=== PATIENT | female | born 1995 | race Caucasian/White ===

== ENCOUNTER 2020-05-03 12:23 | Observation (INO) | payer MEDICAID ==
[2020-05-03] MEDS ORDERED: Acetaminophen 325 MG Tab PO PRN (13:09)
[2020-05-03] MEDS ORDERED: Albuterol 0.083% 2.5 MG/3 ML Neb Soln NEB PRN (13:09)
[2020-05-03] MEDS ORDERED: Ibuprofen 400 MG Tab PO PRN (13:09)
[2020-05-03] MEDS ORDERED: Ondansetron 4 MG Tab.DIS PO PRN (13:09)
[2020-05-03] MEDS ORDERED: Sodium Chloride 0.9% 10 ML Syringe FLUSH PRN (13:09)
--- NOTE | 2020-05-03 13:58 | PCM.HP ---
H&P History of Present Illness - General Date of Service: 05/03/20 Admit Problem/Dx: Admission Diagnosis/Problem Admission Diagnosis/Problem Shortness of breath Source of Information: Patient, Provider (Family practice) - History of Present Illness Initial Comments - Free Text/Narative: 24-year-old lady with no significant past medical history. 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 Recent community transmission of covid-19 infection reported in the area. The patient presented with cough, nausea vomiting diarrhea. Shortness of breath, cough, nasal congestion has been present for about 4 days. Gradually worsening. Associated with no fever. She has had retrosternal chest pain with coughing. She had nausea, vomiting and diarrhea but no abdominal pain. No black or bloody stool or urine. No urinary burning. She is complaining of shortness of breath with activity even small activities like walking across her kitchen. She went to the local clinic and was referred for further aberration treatment in the hospital setting. Her 7 month child has cough without fever without other symptoms. She thought this might relate to allergies. - Related Data Allergies/Adverse Reactions: Allergies Allergy/AdvReac Type Severity Reaction Status Date / Time No Known Allergies Allergy Verified 09/25/19 05:20 Home Medications: Home Meds Pnv No.95/Ferrous Fum/Folic AC [ Vitamin Tablet] 1 each PO DAILY 09/25/19 [History] Past Medical History Respiratory History: Reports: None Gastrointestinal History: Reports: GERD Genitourinary History: Reports: UTI, Recurrent [employer] CONSULTANT History: Reports: Musculoskeletal History: Reports: None Neurological History: Reports: None Psychiatric History: Reports: Addiction, Anxiety, Depression Endocrine/Metabolic History: Reports: None Hematologic History: Reports: None Oncologic (Cancer) History: Reports: None Dermatologic History: Reports: None - Infectious Disease History Infectious Disease History: Reports: None - Past Surgical History Head Surgeries/Procedures: Reports: None Other HEENT Surgeries/Procedures: wisdom teeth removed GI Surgical History: Reports: Cholecystectomy Female Surgical History: Reports: Section Social & Family History - Family History Psychiatric: Reports: Anxiety (Sister) Endocrine/Metabolic: Reports: Diabetes, type II (Mother) - Caffeine Use Caffeine Use: Reports: Soda - Living Situation & Occupation Living situation: Reports: with Significant Other Occupation: Employed H&P Review of Systems - Review of Systems: Review Of Systems: See Below General: Reports: Malaise, Weakness, Fatigue. Denies: Fever, Chills Pulmonary: Reports: Shortness of Breath, Pleuritic Chest Pain, Cough, Sputum. Denies: Hemoptysis Cardiovascular: Reports: Chest Pain (With coughing), Dyspnea on Exertion. Denies: Edema Gastrointestinal: Reports: Diarrhea, Nausea, Vomiting. Denies: Abdominal Pain Psychiatric: Denies: Confusion Exam - Exam Exam: See Below - Vital Signs Vital Signs: Last Vital Signs Temp 97.8 F 05/03/20 13:09 Pulse 86 05/03/20 13:09 Resp 18 05/03/20 13:09 BP 134/84 05/03/20 13:09 Pulse Ox 99 05/03/20 13:09 - Exam General: Alert, Oriented HEENT: Conjunctiva Clear. No: Scleral Icterus Neck: Supple Lungs: Clear to Auscultation, Normal Respiratory Effort. No: Wheezing Cardiovascular: Regular Rate, Regular Rhythm GI/Abdominal Exam: Normal Bowel Sounds, Soft, Non-Tender Extremities: No Pedal Edema Skin: Warm, Dry Neuro Extensive - Mental Status: Alert, Oriented x3, Normal Mood/Affect Psychiatric: Alert, Normal Affect, Normal Mood - Patient Data Lab Results Last 24 hrs: Laboratory Results - last 24 hr 05/03/20 Range/Units 13:15 COVID-19 (ARCHIE) Negative (NEGATIVE) - Problem List (1) Shortness of breath SNOMED Code(s): 827192706 ICD Code: R06.02 - SHORTNESS OF BREATH Status: Acute Current Visit: Yes (2) URTI (acute upper respiratory infection) SNOMED Code(s): 41568792 ICD Code: J06.9 - ACUTE UPPER RESPIRATORY INFECTION, UNSPECIFIED Status: Acute Current Visit: Yes (3) Vomiting SNOMED Code(s): 615933634 ICD Code: R11.10 - VOMITING, UNSPECIFIED Status: Acute Current Visit: Yes (4) Diarrhea SNOMED Code(s): 66274576 ICD Code: R19.7 - DIARRHEA, UNSPECIFIED Status: Acute Current Visit: Yes Problem List Initiated/Reviewed/Updated: Yes Orders Last 24hrs: Active Orders 24 hr Category Date Time Status Patient Status [ADT] Routine ADT 05/03/20 13:09 Active Antiembolic Devices [RC] PER UNIT ROUTINE Care 05/03/20 13:11 Ordered Oxygen Therapy [RC] PRN Care 05/03/20 13:09 Ordered Peripheral IV Care [RC] . DIRECTED Care 05/03/20 13:11 Ordered RT Aerosol Therapy [RC] ASDIRECTED Care 05/03/20 13:11 Ordered Up With Assistance [RC] ASDIRECTED Care 05/03/20 13:09 Ordered VTE/DVT Education [RC] PER UNIT ROUTINE Care 05/03/20 13:09 Ordered Vital Signs [RC] Q4H Care 05/03/20 13:09 Ordered Regular Diet [DIET] Diet 05/03/20 Dinner Ordered BASIC METABOLIC PANEL,BMP [CHEM] Routine Lab 05/03/20 13:05 Ordered C-REACTIVE PROTEIN [CHEM] Routine Lab 05/03/20 13:05 Ordered CBC WITH AUTO DIFF [HEME] Routine Lab 05/03/20 13:05 Ordered CULTURE BLOOD [BC] Stat Lab 05/03/20 13:06 Ordered CULTURE BLOOD [BC] Stat Lab 05/03/20 13:06 Ordered CULTURE SPUTUM + SMEAR [RM] Routine Lab 05/03/20 13:08 Ordered CULTURE URINE [RM] Routine Lab 05/03/20 13:05 Ordered DD [D-DIMER QUANTITATIVE] [COAG] Routine Lab 05/03/20 13:07 Ordered HEPATIC FUNCTION PANEL,HFP [CHEM] Routine Lab 05/03/20 13:05 Ordered INFLUENZA A+B AG SCREEN [RM] Routine Lab 05/03/20 13:07 Ordered INR,PT,PROTHROMBIN TIME [COAG] Routine Lab 05/03/20 13:05 Ordered LACTATE DEHYDROGENASE,LDH [CHEM] Routine Lab 05/03/20 13:06 Ordered LACTIC ACID [CHEM] Routine Lab 05/03/20 13:05 Ordered PROCALCITONIN [REF] Routine Lab 05/03/20 13:06 Ordered UA W/MICROSCOPIC [URIN] Routine Lab 05/03/20 13:05 Ordered Acetaminophen [Tylenol] Med 05/03/20 13:09 Ordered 650 mg PO Q4H PRN Albuterol [Proventil Neb Soln] Med 05/03/20 13:09 Ordered 2.5 mg NEB Q2H PRN Heparin Sodium Med 05/03/20 14:00 Ordered 5,000 units SUBCUT Q8HR Ibuprofen [Motrin] Med 05/03/20 13:09 Ordered 400 mg PO Q6H PRN Ondansetron [Zofran ODT] Med 05/03/20 13:09 Ordered 4 mg PO Q4H PRN Sodium Chloride 0.9% @ 125 MLS/HR (1000ml) Med 05/03/20 13:15 Ordered Sodium Chloride 0.9% [Normal Saline] 1,000 ml IV ASDIRECTED Sodium Chloride 0.9% [Saline Flush] Med 05/03/20 13:09 Ordered 10 ml FLUSH ASDIRECTED PRN Antiembolic Hose [OM.PC] Per Unit Routine Oth 05/03/20 13:10 Ordered Blood Culture x2 Reflex Set [OM.PC] Stat Oth 05/03/20 13:05 Ordered Isolation [COMM] Routine Ot 05/03/20 13:08 Ordered Peripheral IV Insertion Adult [OM.PC] Routine Ot 05/03/20 13:09 Ordered Resuscitation Status Routine Resus Stat 05/03/20 13:09 Ordered Medication Orders Acetaminophen (Tylenol) 650 mg PO Q4H PRN PRN Reason: Pain (Mild 1-3)/fever Albuterol (Proventil Neb Soln) 2.5 mg NEB Q2H PRN PRN Reason: shortness of breath/wheezing Heparin Sodium (Porcine) (Heparin Sodium) 5,000 units SUBCUT Q8HR TASHA Sodium Chloride (Normal Saline) 1,000 mls @ 125 mls/hr IV ASDIRECTED TASHA Ibuprofen (Motrin) 400 mg PO Q6H PRN PRN Reason: Pain (moderate 4-6) Ondansetron HCl (Zofran Odt) 4 mg PO Q4H PRN PRN Reason: nausea, able to take PO Sodium Chloride (Saline Flush) 10 ml FLUSH ASDIRECTED PRN PRN Reason: Keep Vein Open Assessment/Plan Comment:: 24-year-old otherwise healthy lady presented with shortness of breath, cough, stuffy nose, pleuritic chest pain. She also has had diarrhea, nausea, vomiting. In the clinic she was noted to have tachycardia We'll have further evaluation Concern for upper respiratory tract infection, most likely viral infection, less likely bacterial Chest x-ray per my reading shows no infiltrate. This x-ray was done in the clinic. Will evaluate for suspected covid-19 with rapid testing Obtain White blood cell count, differential, BMP, d-dimer, LDH, LFT Open sputum culture Obtain influenza swab Obtain blood cultures Obtain urine analysis and culture In the meantime hydrate the patient Treat conservatively with the Robitussin, Tylenol, nonsteroidals Monitor vital signs DVT prophylaxis with subcutaneous heparin
[2020-05-03] MEDS ORDERED: guaiFENesin 100 MG/5 ML Soln 5 ML UD Cup PO PRN (14:07)
[2020-05-03] MEDS ORDERED: Sodium Chloride 0.9% 1,000 ML IV SCH (14:30)
[2020-05-03 14:37] LABS: ANION GAP 14.4 mEq/L (7-13); CHLORIDE,CL 100 mmol/L (98-107); SODIUM,NA 136 mmol/L (136-145)
[2020-05-03] MEDS: Sodium Chloride 0.9% 1,000 ML IV SCH ×2 (14:41→21:29)
[2020-05-03] MEDS ORDERED: Potassium Chloride 10 MEQ Tab.ER PO ONE (15:06)
[2020-05-03] MEDS: Heparin Sodium 5,000 Units/ML Vial SUBCUT SCH ×2 (15:39→21:42)
[2020-05-03] MEDS: Albuterol/Ipratropium 3.0-0.5 MG/3 ML Neb Soln NEB SCH ×2 (16:37→21:30)
[2020-05-04] MEDS: Sodium Chloride 0.9% 1,000 ML IV SCH (05:14)
[2020-05-04] MEDS: Heparin Sodium 5,000 Units/ML Vial SUBCUT SCH (06:17)
[2020-05-04 06:31] LABS: ANION GAP 13.1 mEq/L (7-13); CHLORIDE,CL 107 mmol/L (98-107); SODIUM,NA 140 mmol/L (136-145)
[2020-05-04] MEDS: Albuterol/Ipratropium 3.0-0.5 MG/3 ML Neb Soln NEB SCH (07:28)
[2020-05-04 07:43] VITALS: BP 117/81; PULSE 86
--- NOTE | 2020-05-04 10:53 | PCM.DCSUM1 ---
Discharge Summary - Hospital Course Free Text/Narrative:: 24-year-old otherwise healthy lady presented with shortness of breath, cough, stuffy nose, pleuritic chest pain. She also has had diarrhea, nausea, vomiting. In the clinic she was noted to have tachycardia, tachypnea. Further evaluations revealed normal chest x-ray No leukocytosis Negative d-dimer Initially elevated a little been that normalized overnight No fever since admission Oxygen saturations in the high 90s even with activity Negative rapid, hospital performed Covid test Negative influenza swab The patient's symptoms most likely represent a viral syndrome Albuterol, Robitussin was given No antibiotics were given The patient will be discharged in a stable condition Will follow-up with her primary care physician on Wednesday for reevaluation of symptoms and the result of this sent out Covid test that was sent from the clinic prior to admission. We discussed that suspicion for Covid was significant, testing did not prove it but false negative tests are possible. Discussed the use of appropriate Covid transmission prevention methods. Diagnosis: Stroke: No - Discharge Data Discharge Date: 05/04/20 Discharge Disposition: Home, Self-Care 01 Condition: Good - Referral to Home Health Primary Care Physician: Mayda Duran MD - Discharge Diagnosis/Problem(s) (1) Shortness of breath SNOMED Code(s): 232220907 ICD Code: R06.02 - SHORTNESS OF BREATH Status: Acute Current Visit: Yes (2) URTI (acute upper respiratory infection) SNOMED Code(s): 50249025 ICD Code: J06.9 - ACUTE UPPER RESPIRATORY INFECTION, UNSPECIFIED Status: Acute Current Visit: Yes (3) Vomiting SNOMED Code(s): 210179417 ICD Code: R11.10 - VOMITING, UNSPECIFIED Status: Acute Current Visit: Yes (4) Diarrhea SNOMED Code(s): 77010809 ICD Code: R19.7 - DIARRHEA, UNSPECIFIED Status: Acute Current Visit: Yes - Patient Instructions Diet: Usual Diet as Tolerated Activity: As Tolerated - Discharge Plan *PRESCRIPTION DRUG MONITORING PROGRAM REVIEWED*: Not Applicable *COPY OF PRESCRIPTION DRUG MONITORING REPORT IN PATIENT SUJEY: Not Applicable Prescriptions/Med Rec: Albuterol [Proventil HFA] 2 puff INH Q4H PRN #1 inhaler PRN Reason: sob Home Medications: Home Meds Pnv No.95/Ferrous Fum/Folic AC [ Vitamin Tablet] 1 each PO DAILY 09/25/19 [History] Albuterol [Proventil HFA] 2 puff INH Q4H PRN #1 inhaler 05/04/20 [Rx] guaiFENesin [Robitussin] 100 mg PO Q6H PRN cup 05/04/20 [Rx] Oxygen Therapy Mode: Room Air Patient Handouts: Shortness of Breath, Adult, [id number] Referrals: Mayda Lezama MD [Primary Care Provider] - - Discharge Summary/Plan Comment DC Time >30 min.: No - General Info Date of Service: 05/04/20 Functional Status: Reports: Pain Controlled - Review of Systems General: Denies: Fever, Weakness Pulmonary: Reports: Shortness of Breath (Resolved), Pleuritic Chest Pain (Resolved) Cardiovascular: Denies: Edema Gastrointestinal: Reports: Diarrhea (Resolved). Denies: Abdominal Pain Genitourinary: Denies: Dysuria Neurological: Denies: Confusion - Patient Data Vitals - Most Recent: Last Vital Signs Temp 97.1 F 05/04/20 07:43 Pulse 86 05/04/20 07:43 Resp 16 05/04/20 07:43 BP 117/81 05/04/20 07:43 Pulse Ox 99 05/04/20 07:43 Weight - Most Recent: 155 lb I&O - Last 24 hours: Intake & Output 05/03/20 05/04/20 05/04/20 22:59 06:59 14:59 Intake Total 1951 970 120 Output Total 800 600 Balance 1151 370 120 Lab Results - Last 24 hrs: Laboratory Results - last 24 hr 05/03/20 05/03/20 05/03/20 Range/Units 13:15 13:50 13:55 WBC 8.2 (5.0-10.0) 10^3/uL RBC 5.10 (4.2-5.4) 10^6/uL Hgb 16.4 H D (12.0-16.0) g/dL Hct 47.1 H (37.0-47.0) % MCV 92.4 D (80-100) fL MCH 32.2 (27.0-34.0) pg MCHC 34.8 (33.0-35.0) g/dL Plt Count 359 D (150-450) 10^3/uL Neut % (Auto) 58.8 (42.2-75.2) % Lymph % (Auto) 30.9 (20.5-50.1) % [place] % (Auto) 6.6 (2-8) % Eos % (Auto) 3.1 H (1.0-3.0) % Baso % (Auto) 0.6 (0.0-1.0) % PT (9.0-12.0) SEC INR (0.9-1.2) D-Dimer, Quantitative (0-400) ng/mL Sodium (136-145) mmol/L Potassium (3.5-5.1) mmol/L Chloride (98-107) mmol/L Carbon Dioxide (21-32) mmol/L Anion Gap (7-13) mEq/L BUN (7-18) mg/dL Creatinine (0.55-1.02) mg/dL Est Cr Clr Drug Dosing Estimated GFR (MDRD) Glucose (74-99) mg/dL Lactic Acid (0.4-2.0) mmol/L Calcium (8.5-10.1) mg/dL Total Bilirubin (0.2-1.0) mg/dL Direct Bilirubin (0.0-0.2) mg/dL Indirect Bilirubin AST (15-37) U/L ALT (14-59) U/L Alkaline Phosphatase (46-116) U/L Lactate Dehydrogenase (81-234) U/L C-Reactive Protein (0.0-0.9) mg/dL Total Protein (6.4-8.2) g/dL Albumin (3.4-5.0) g/dL Globulin Albumin/Globulin Ratio Procalcitonin (<0.10) ng/mL Urine Color Dark yellow (YELLOW) Urine Appearance Slightly cloudy (CLEAR) Urine pH 7.0 (5.0-9.0) Ur Specific [place] 1.020 (1.005-1.030) Urine Protein Negative (NEGATIVE) Urine Glucose (UA) Negative (NEGATIVE) Urine Ketones Trace H (NEGATIVE) Urine Occult Blood Negative (NEGATIVE) Urine Nitrite Negative (NEGATIVE) Urine Bilirubin Negative (NEGATIVE) Urine Urobilinogen 0.2 (0.2-1.0) mg/dL Ur Leukocyte Esterase Negative (NEGATIVE) Urine RBC 0-5 /HPF Urine WBC 5-10 H (0-5/HPF) /HPF Ur Epithelial Cells Moderate H (NOT SEEN) /HPF Urine Bacteria Few (0-FEW/HPF) /HPF Urine Mucus Rare (NOT SEEN) /LPF COVID-19 (ARCHIE) Negative (NEGATIVE) 05/03/20 05/03/20 05/03/20 Range/Units 13:55 13:55 13:55 WBC (5.0-10.0) 10^3/uL RBC (4.2-5.4) 10^6/uL Hgb (12.0-16.0) g/dL Hct (37.0-47.0) % MCV (80-100) fL MCH (27.0-34.0) pg MCHC (33.0-35.0) g/dL Plt Count (150-450) 10^3/uL Neut % (Auto) (42.2-75.2) % Lymph % (Auto) (20.5-50.1) % [place] % (Auto) (2-8) % Eos % (Auto) (1.0-3.0) % Baso % (Auto) (0.0-1.0) % PT 10.4 (9.0-12.0) SEC INR 1.1 (0.9-1.2) D-Dimer, Quantitative (0-400) ng/mL Sodium 136 (136-145) mmol/L Potassium 3.4 L (3.5-5.1) mmol/L Chloride 100 (98-107) mmol/L Carbon Dioxide 25 (21-32) mmol/L Anion Gap 14.4 H (7-13) mEq/L BUN 10 (7-18) mg/dL Creatinine 0.83 (0.55-1.02) mg/dL Est Cr Clr Drug Dosing TNP Estimated GFR (MDRD) > 60 Glucose 103 H (74-99) mg/dL Lactic Acid 1.2 (0.4-2.0) mmol/L Calcium 8.8 (8.5-10.1) mg/dL Total Bilirubin 2.2 H (0.2-1.0) mg/dL Direct Bilirubin 0.5 H (0.0-0.2) mg/dL Indirect Bilirubin 1.7 AST 42 H (15-37) U/L ALT 29 (14-59) U/L Alkaline Phosphatase 81 (46-116) U/L Lactate Dehydrogenase 169 (81-234) U/L C-Reactive Protein < 0.2 (0.0-0.9) mg/dL Total Protein 7.8 (6.4-8.2) g/dL Albumin 4.3 (3.4-5.0) g/dL Globulin 3.5 Albumin/Globulin Ratio 1.2 Procalcitonin (<0.10) ng/mL Urine Color (YELLOW) Urine Appearance (CLEAR) Urine pH (5.0-9.0) Ur Specific [place] (1.005-1.030) Urine Protein (NEGATIVE) Urine Glucose (UA) (NEGATIVE) Urine Ketones (NEGATIVE) Urine Occult Blood (NEGATIVE) Urine Nitrite (NEGATIVE) Urine Bilirubin (NEGATIVE) Urine Urobilinogen (0.2-1.0) mg/dL Ur Leukocyte Esterase (NEGATIVE) Urine RBC /HPF Urine WBC (0-5/HPF) /HPF Ur Epithelial Cells (NOT SEEN) /HPF Urine Bacteria (0-FEW/HPF) /HPF Urine Mucus (NOT SEEN) /LPF COVID-19 (ARCHIE) (NEGATIVE) 05/03/20 05/03/20 05/04/20 Range/Units 13:55 13:55 06:00 WBC 7.7 (5.0-10.0) 10^3/uL RBC 3.96 L (4.2-5.4) 10^6/uL Hgb 12.9 D (12.0-16.0) g/dL Hct 38.0 (37.0-47.0) % MCV 96.0 D (80-100) fL MCH 32.6 (27.0-34.0) pg MCHC 33.9 (33.0-35.0) g/dL Plt Count 291 (150-450) 10^3/uL Neut % (Auto) 53.8 (42.2-75.2) % Lymph % (Auto) 34.6 (20.5-50.1) % [place] % (Auto) 7.2 (2-8) % Eos % (Auto) 3.9 H (1.0-3.0) % Baso % (Auto) 0.5 (0.0-1.0) % PT (9.0-12.0) SEC INR (0.9-1.2) D-Dimer, Quantitative < 100 (0-400) ng/mL Sodium (136-145) mmol/L Potassium (3.5-5.1) mmol/L Chloride (98-107) mmol/L Carbon Dioxide (21-32) mmol/L Anion Gap (7-13) mEq/L BUN (7-18) mg/dL Creatinine (0.55-1.02) mg/dL Est Cr Clr Drug Dosing Estimated GFR (MDRD) Glucose (74-99) mg/dL Lactic Acid (0.4-2.0) mmol/L Calcium (8.5-10.1) mg/dL Total Bilirubin (0.2-1.0) mg/dL Direct Bilirubin (0.0-0.2) mg/dL Indirect Bilirubin AST (15-37) U/L ALT (14-59) U/L Alkaline Phosphatase (46-116) U/L Lactate Dehydrogenase (81-234) U/L C-Reactive Protein (0.0-0.9) mg/dL Total Protein (6.4-8.2) g/dL Albumin (3.4-5.0) g/dL Globulin Albumin/Globulin Ratio Procalcitonin <0.05 (<0.10) ng/mL Urine Color (YELLOW) Urine Appearance (CLEAR) Urine pH (5.0-9.0) Ur Specific [place] (1.005-1.030) Urine Protein (NEGATIVE) Urine Glucose (UA) (NEGATIVE) Urine Ketones (NEGATIVE) Urine Occult Blood (NEGATIVE) Urine Nitrite (NEGATIVE) Urine Bilirubin (NEGATIVE) Urine Urobilinogen (0.2-1.0) mg/dL Ur Leukocyte Esterase (NEGATIVE) Urine RBC /HPF Urine WBC (0-5/HPF) /HPF Ur Epithelial Cells (NOT SEEN) /HPF Urine Bacteria (0-FEW/HPF) /HPF Urine Mucus (NOT SEEN) /LPF COVID-19 (ARCHIE) (NEGATIVE) 05/04/20 Range/Units 06:00 WBC (5.0-10.0) 10^3/uL RBC (4.2-5.4) 10^6/uL Hgb (12.0-16.0) g/dL Hct (37.0-47.0) % MCV (80-100) fL MCH (27.0-34.0) pg MCHC (33.0-35.0) g/dL Plt Count (150-450) 10^3/uL Neut % (Auto) (42.2-75.2) % Lymph % (Auto) (20.5-50.1) % [place] % (Auto) (2-8) % Eos % (Auto) (1.0-3.0) % Baso % (Auto) (0.0-1.0) % PT (9.0-12.0) SEC INR (0.9-1.2) D-Dimer, Quantitative (0-400) ng/mL Sodium 140 (136-145) mmol/L Potassium 4.1 (3.5-5.1) mmol/L Chloride 107 (98-107) mmol/L Carbon Dioxide 24 (21-32) mmol/L Anion Gap 13.1 H (7-13) mEq/L BUN 9 (7-18) mg/dL Creatinine 0.68 (0.55-1.02) mg/dL Est Cr Clr Drug Dosing 122.99 Estimated GFR (MDRD) > 60 Glucose 99 (74-99) mg/dL Lactic Acid (0.4-2.0) mmol/L Calcium 8.1 L (8.5-10.1) mg/dL Total Bilirubin 0.9 (0.2-1.0) mg/dL Direct Bilirubin 0.2 (0.0-0.2) mg/dL Indirect Bilirubin 0.7 AST 22 (15-37) U/L ALT 24 (14-59) U/L Alkaline Phosphatase 63 (46-116) U/L Lactate Dehydrogenase (81-234) U/L C-Reactive Protein (0.0-0.9) mg/dL Total Protein 5.7 L (6.4-8.2) g/dL Albumin 3.1 L (3.4-5.0) g/dL Globulin 2.6 Albumin/Globulin Ratio 1.19 Procalcitonin (<0.10) ng/mL Urine Color (YELLOW) Urine Appearance (CLEAR) Urine pH (5.0-9.0) Ur Specific [place] (1.005-1.030) Urine Protein (NEGATIVE) Urine Glucose (UA) (NEGATIVE) Urine Ketones (NEGATIVE) Urine Occult Blood (NEGATIVE) Urine Nitrite (NEGATIVE) Urine Bilirubin (NEGATIVE) Urine Urobilinogen (0.2-1.0) mg/dL Ur Leukocyte Esterase (NEGATIVE) Urine RBC /HPF Urine WBC (0-5/HPF) /HPF Ur Epithelial Cells (NOT SEEN) /HPF Urine Bacteria (0-FEW/HPF) /HPF Urine Mucus (NOT SEEN) /LPF COVID-19 (ARCHIE) (NEGATIVE) ANNIE Results - Last 24 hrs: Microbiology 05/03/20 13:05 Urine Culture - Preliminary Urine, Clean Catch MIXED POSITIVE JULIOCESAR DAY 1 05/03/20 14:50 Gram Stain - Final Sputum - Expectorated Sputum Culture - Preliminary NORMAL RESPIRATORY JULIOCESAR 1 DAY 05/03/20 13:55 Influenza Type A Antigen Screen - Final Nasopharyngeal Swab NEGATIVE INFLUENZA A VIRUS AG REFERENCE RANGE: NEGATIVE Influenza Type B Antigen Screen - Final NEGATIVE INFLUENZA B VIRUS AG REFERENCE RANGE: NEGATIVE Med Orders - Current: Current Medications Acetaminophen (Tylenol) 650 mg PO Q4H PRN PRN Reason: Pain (Mild 1-3)/fever Albuterol (Proventil Neb Soln) 2.5 mg NEB Q2H PRN PRN Reason: shortness of breath/wheezing Albuterol/Ipratropium (Duoneb 3.0-0.5 Mg/3 Ml) 3 ml NEB TIDRT [facility], [facility]1983 Last Admin: 05/04/20 07:28 Dose: 3 ml Documented by: Guaifenesin (Robitussin) 100 mg PO Q6H PRN PRN Reason: Cough Heparin Sodium (Porcine) (Heparin Sodium) 5,000 units SUBCUT Q8HR [facility], [facility]1983 Last Admin: 05/04/20 06:17 Dose: Not Given Documented by: Sodium Chloride (Normal Saline) 1,000 mls @ 125 mls/hr IV ASDIRECTED [facility], 1928–1983 Last Admin: 05/04/20 05:14 Dose: 125 mls/hr Documented by: Ibuprofen (Motrin) 400 mg PO Q6H PRN PRN Reason: Pain (moderate 4-6) Last Admin: 05/03/20 20:18 Dose: 400 mg Documented by: Ondansetron HCl (Zofran Odt) 4 mg PO Q4H PRN PRN Reason: nausea, able to take PO Sodium Chloride (Saline Flush) 10 ml FLUSH ASDIRECTED PRN PRN Reason: Keep Vein Open Discontinued Medications Sodium Chloride (Normal Saline) 1,000 mls @ 100 mls/hr IV ASDIRECTED [facility], [facility]1983 Potassium Chloride (Klor-Con 10) 40 meq PO ONETIME ONE Stop: 05/03/20 15:07 Last Admin: 05/03/20 16:37 Dose: 40 meq Documented by: - Exam General: Reports: Alert, Oriented Neck: Reports: Supple Lungs: Reports: Clear to Auscultation, Normal Respiratory Effort Cardiovascular: Reports: Regular Rate, Regular Rhythm Extremities: No Pedal Edema
== END 2020-05-04 11:45 | disposition home or self-care (01) ==
LOC: UNDOADMOB 12:24 → DL.MS 12:24
PROVIDERS: ADMIT Internal Medicine; ATTEND Internal Medicine
DX: R06.02 Shortness of breath (principal); J06.9 Acute upper respiratory infection, unspecified; R19.7 Diarrhea, unspecified; R11.2 Nausea with vomiting, unspecified; R07.2 Precordial pain; R05 Cough; K21.9 Gastro-esophageal reflux disease without esophagitis; F41.9 Anxiety disorder, unspecified; F32.9 Major depressive disorder, single episode, unspecified; Z20.828 Contact with and (suspected) exposure to other viral communicable diseases; Z79.899 Other long term (current) drug therapy
CPT/HCPCS: 36415; 80048; 80076; 81001; 83605; 83615; 84145; 85025; 85379; 85610; 86140; 87040; 87070; 87086; 87205; 87635; 87804; 94640; 96360; 96361; 96375; A9270; G0378; G0379; J7030; J7620-GY; U0002

== ENCOUNTER 2022-11-11 15:09 | Emergency (ER) | payer MEDICAID ==
[2022-11-11] MEDS ORDERED: Albuterol 0.083% 2.5 MG/3 ML Neb Soln NEB ONE (15:30)
[2022-11-11 16:26] LABS: CORONAVIRUS COVID-19 NAA NEGATIVE (NEGATIVE); RESPIRATORY SYNCYTIAL VIR NAA NEGATIVE (NEGATIVE)
[2022-11-11 17:24] VITALS: BP 141/101
[2022-11-11] MEDS ORDERED: Albuterol/Ipratropium 3.0-0.5 MG/3 ML Neb Soln NEB ONE (17:33)
[2022-11-11] MEDS ORDERED: Sodium Chloride 0.9% 1,000 ML IV ONE (17:33)
[2022-11-11 17:58] VITALS: PULSE 98
[2022-11-11 19:18] LABS: ANION GAP 13.7 mEq/L (7-13); CHLORIDE,CL 105 mmol/L (98-107); SODIUM,NA 138 mmol/L (136-145)
[2022-11-11 19:22] LABS: ESTIMATED GFR 126 mL/min (>=60)
[2022-11-11] MEDS ORDERED: methylPREDNISolone Sodium Succinate 125 MG/2 ML SDV IVPUSH ONE (20:20)
[2022-11-11] MEDS ORDERED: Azithromycin 250 MG Tab PO ONE (20:53)
== END 2022-11-11 21:15 | disposition home or self-care (01) ==
LOC: DL.ED 15:09
DX: O99.512 Diseases of the respiratory system complicating pregnancy, second trimester (principal); J45.41 Moderate persistent asthma with (acute) exacerbation; O99.332 Smoking (tobacco) complicating pregnancy, second trimester; F17.210 Nicotine dependence, cigarettes, uncomplicated; Z3A.20 20 weeks gestation of pregnancy; Z20.822 Contact with and (suspected) exposure to COVID-19
CPT/HCPCS: 0241U; 36415; 71046; 80053; 81003; 83880; 84145; 84443; 84484; 85025; 85379; 86140; 94640; 96361; 96374; 99285; A9270; J2930; J7030; J7613-GY; J7620-GY

== ENCOUNTER 2023-03-09 17:14 | Inpatient (IN) | payer MEDICAID ==
[2023-03-09 18:31] LABS: APPEARANCE,URINE CLEAR (CLEAR); BILIRUBIN,URINE NEGATIVE (NEGATIVE); COLOR,URINE YELLOW (YELLOW); GLUCOSE,URINE NEGATIVE (NEGATIVE); KETONES,URINE NEGATIVE (NEGATIVE); LEUKOCYTE ESTERASE,URINE SMALL (NEGATIVE); NITRITE,URINE NEGATIVE (NEGATIVE); OCCULT BLOOD,URINE MODERATE (NEGATIVE); PH,URINE 6.5 (5.0-9.0); PROTEIN,URINE NEGATIVE (NEGATIVE); UROBILINOGEN,URINE 0.2 mg/dL (0.2-1.0)
[2023-03-09] MEDS ORDERED: hydrOXYzine HCl 25 MG Tab PO ONE (18:40)
[2023-03-09 18:42] LABS: BACTERIA,URINE FEW /HPF (0-FEW/HPF); EPITHELIAL CELLS,URINE MODERATE /HPF (NOT SEEN); RBC,URINE 0-5 /HPF (0-5); WBC,URINE 0-5 /HPF (0-5/HPF)
[2023-03-09 18:48] LABS: PROTEIN,URINE RANDOM < 6.0 mg/dL (0.0-11.9)
[2023-03-09] MEDS ORDERED: Oxytocin 10 Units/1 ML SDV IM PRN (18:50)
[2023-03-09] MEDS ORDERED: Sodium Chloride 0.9% 10 ML Syringe FLUSH PRN (18:50)
[2023-03-09] MEDS ORDERED: Citric Acid/Sodium Citrate Solution 30 ML Cup PO ONE (18:50)
[2023-03-09] MEDS ORDERED: Tranexamic Acid 1,000 MG in Sodium Chloride 0.9% 100 ML IV PRN ×2 (18:50→20:57)
[2023-03-09] MEDS ORDERED: Methylergonovine 0.2 MG Tab PO PRN (18:50)
[2023-03-09] MEDS ORDERED: ceFAZolin 2 GM Vial IVPUSH ONE (18:50)
[2023-03-09] MEDS ORDERED: Carboprost Tromethamine 250 MCG/1 ML Amp IM PRN ×2 (18:50→20:57)
[2023-03-09] MEDS ORDERED: Lactated Ringers 1,000 ML IV SCH ×2 (19:00)
[2023-03-09] MEDS ORDERED: Oxytocin/Normal Saline 30 UNIT/500 ML BAG IV SCH (19:00)
[2023-03-09] MEDS: Lactated Ringers 1,000 ML IV SCH ×2 (19:05→21:00)
[2023-03-09 19:09] LABS: HEMATOCRIT 39.6 % (37.0-47.0); HEMOGLOBIN 13.3 g/dL (12.0-16.0); MEAN CORPUSCULAR HEMOGLOBIN 28.8 pg (27.0-34.0); MEAN CORPUSCULAR HGB CONC 33.6 g/dL (33.0-35.0); MEAN CORPUSCULAR VOLUME 85.7 fL (80-100); PLATELET COUNT,PLT 337 10^3/uL (150-450); RED BLOOD CELL COUNT 4.62 10^6/uL (4.2-5.4); WHITE BLOOD CELL COUNT,WBC 19.6 10^3/uL (5.0-10.0)
[2023-03-09 19:12] LABS: BASOPHILS PERCENT AUTO 0.4 % (0.0-1.0); EOSINOPHILS PERCENT AUTO 1.4 % (1.0-3.0); LYMPHOCYTES PERCENT AUTO 14.9 % (20.5-50.1); MONOCYTES PERCENT AUTO 5.3 % (2-8)
[2023-03-09 19:28] LABS: ALANINE AMINOTRANSFERASE,ALT 30 U/L (14-59); ASPARTATE AMNIOTRANSFERASE,AST 24 U/L (15-37); BLOOD UREA NITROGEN,BUN 8 mg/dL (7-18); CREATININE 0.61 mg/dL (0.55-1.02); ESTIMATED GFR 125 mL/min (>=60)
[2023-03-09] MEDS ORDERED: Dexamethasone 4 MG/ML SDV ONE (19:28)
[2023-03-09] MEDS ORDERED: Ondansetron 4 MG/2 ML SDV ONE (19:28)
[2023-03-09] MEDS ORDERED: Oxytocin 10 Units/1 ML SDV ONE (19:29)
[2023-03-09] MEDS ORDERED: Ketorolac 30 MG/ML SDV ONE (19:29)
[2023-03-09 19:32] LABS: EOSINOPHILS PERCENT MAN 2 % (1-3); LYMPHOCYTES PERCENT MAN 13 % (20-50); MONOCYTES PERCENT MAN 8 % (2-8); SEG NEUTROPHILS PERCENT MAN 77 % (42-75)
[2023-03-09] MEDS ORDERED: Oxytocin/Normal Saline 30 UNIT/500 ML BAG ONE (19:38)
[2023-03-09] MEDS ORDERED: ceFAZolin 2 GM Vial ONE (19:38)
[2023-03-09] MEDS ORDERED: Measles, Mumps & Rubella Vaccine 0.5 ML SDV SUBCUT ONE (20:57)
[2023-03-09] MEDS ORDERED: Naloxone 2 MG/2 ML Syringe IVPUSH PRN (20:57)
[2023-03-09] MEDS ORDERED: ePHEDrine 50 MG/ML SDV IVPUSH PRN (20:57)
[2023-03-09] MEDS ORDERED: diphenhydrAMINE 50 MG/ML SDV IVPUSH PRN (20:57)
[2023-03-09] MEDS ORDERED: Ondansetron 4 MG/2 ML SDV IVPUSH PRN (20:57)
[2023-03-09] MEDS ORDERED: Acetaminophen 325 MG Tab PO PRN (20:57)
[2023-03-09] MEDS ORDERED: Misoprostol 400 MCG (4 X 100 MCG TAB) RECTAL PRN (20:57)
[2023-03-09] MEDS ORDERED: Famotidine 20 MG Tab PO PRN (20:57)
[2023-03-09] MEDS ORDERED: Methylergonovine 0.2 MG/1 ML Amp IM PRN (20:57)
[2023-03-09] MEDS ORDERED: Acetaminophen/oxyCODONE 325-5 MG Tab PO PRN (20:57)
[2023-03-09] MEDS ORDERED: Sodium Chloride 0.9% 10 ML Syringe FLUSH SCH (21:00)
[2023-03-09 23:20] LABS: AMPHETAMINES,URINE NEGATIVE (NEGATIVE); BARBITURATES,URINE NEGATIVE (NEGATIVE); BENZODIAZEPINE,URINE NEGATIVE (NEGATIVE); MDMA (ECSTASY), URINE NEGATIVE (NEGATIVE); METHADONE,URINE NEGATIVE (NEGATIVE); METHAMPHETAMINES,URINE POSITIVE (NEGATIVE); OPIATES,URINE NEGATIVE (NEGATIVE); OXYCODONE,URINE NEGATIVE (NEGATIVE); PHENCYCLIDINE,URINE NEGATIVE (NEGATIVE); TCA,URINE NEGATIVE (NEGATIVE)
[2023-03-10] MEDS: Lactated Ringers 1,000 ML IV SCH ×3 (02:00→10:00)
[2023-03-10] MEDS: Simethicone 80 MG Tab.Chew PO SCH ×5 (02:49→20:33)
[2023-03-10] MEDS: Ketorolac 30 MG/ML SDV IVPUSH SCH ×4 (03:04→15:28)
[2023-03-10 06:14] LABS: HEMATOCRIT 34.2 % (37.0-47.0); HEMOGLOBIN 11.2 g/dL (12.0-16.0); MEAN CORPUSCULAR HEMOGLOBIN 28.6 pg (27.0-34.0); MEAN CORPUSCULAR HGB CONC 32.7 g/dL (33.0-35.0); MEAN CORPUSCULAR VOLUME 87.5 fL (80-100); RED BLOOD CELL COUNT 3.91 10^6/uL (4.2-5.4); WHITE BLOOD CELL COUNT,WBC 16.5 10^3/uL (5.0-10.0)
[2023-03-10] MEDS: Prenatal Multivitamin with Calcium/Folic Acid/Iron Tab PO SCH (08:43)
[2023-03-10] MEDS: Docusate Sodium 100 MG Cap PO PRN ×2 (08:43→23:37)
[2023-03-10 11:25] LABS: AMPHETAMINES,URINE NEGATIVE (NEGATIVE); BARBITURATES,URINE NEGATIVE (NEGATIVE); BENZODIAZEPINE,URINE NEGATIVE (NEGATIVE); MDMA (ECSTASY), URINE NEGATIVE (NEGATIVE); METHADONE,URINE NEGATIVE (NEGATIVE); METHAMPHETAMINES,URINE POSITIVE (NEGATIVE); OPIATES,URINE NEGATIVE (NEGATIVE); OXYCODONE,URINE NEGATIVE (NEGATIVE); PHENCYCLIDINE,URINE NEGATIVE (NEGATIVE); TCA,URINE NEGATIVE (NEGATIVE)
[2023-03-10] MEDS: Ibuprofen 800 MG Tab PO PRN (23:37)
[2023-03-11] MEDS: Acetaminophen/oxyCODONE 325-5 MG Tab PO PRN ×4 (08:43→23:28)
[2023-03-11] MEDS: Simethicone 80 MG Tab.Chew PO SCH ×4 (08:43→20:57)
[2023-03-11] MEDS: Docusate Sodium 100 MG Cap PO PRN ×2 (08:44→20:58)
[2023-03-11] MEDS: Prenatal Multivitamin with Calcium/Folic Acid/Iron Tab PO SCH (08:44)
[2023-03-11] MEDS: Ibuprofen 800 MG Tab PO PRN ×2 (12:57→20:58)
[2023-03-12] MEDS: Acetaminophen/oxyCODONE 325-5 MG Tab PO PRN ×3 (03:51→12:49)
[2023-03-12] MEDS: Simethicone 80 MG Tab.Chew PO SCH ×2 (08:57→12:49)
[2023-03-12] MEDS: Prenatal Multivitamin with Calcium/Folic Acid/Iron Tab PO SCH (08:57)
[2023-03-12] MEDS: Docusate Sodium 100 MG Cap PO PRN (08:57)
[2023-03-12 16:45] VITALS: BP 133/83; PULSE 83
== END 2023-03-12 16:05 | disposition home or self-care (01) | DRG 788 ==
LOC: DL.OBCHECK 17:14 → DL.MS 18:50 → OBSVTOIN 20:09
PROVIDERS: ADMIT Family Medicine; ATTEND Family Medicine
PROC: 10D00Z1 Extraction of Products of Conception, Low, Open Approach (ICD-10-PCS; principal; 2023-03-09)
PROC: 3E0234Z Introduction of Serum, Toxoid and Vaccine into Muscle, Percutaneous Approach (ICD-10-PCS; 2023-03-09)
PROC: 3E0334Z Introduction of Serum, Toxoid and Vaccine into Peripheral Vein, Percutaneous Approach (ICD-10-PCS; 2023-03-10)
DX: O13.4 Gestational [pregnancy-induced] hypertension without significant proteinuria, complicating childbirth (principal); O34.211 Maternal care for low transverse scar from previous cesarean delivery; O99.324 Drug use complicating childbirth; O99.214 Obesity complicating childbirth; O26.893 Other specified pregnancy related conditions, third trimester; O77.0 Labor and delivery complicated by meconium in amniotic fluid; F15.10 Other stimulant abuse, uncomplicated; O99.344 Other mental disorders complicating childbirth; F32.A Depression, unspecified; F41.9 Anxiety disorder, unspecified; Z37.0 Single live birth; Z3A.38 38 weeks gestation of pregnancy; Z67.41 Type O blood, Rh negative; Z98.890 Other specified postprocedural states; Z88.8 Allergy status to other drugs, medicaments and biological substances; Z23 Encounter for immunization
CPT/HCPCS: 01961; 36415; 80305-QW; 81001; 82565; 82570; 84156; 84450; 84460; 84520; 85025; 85027; 85461; 86850; 86900; 86901; 87081; 87210; 90471; 90707; A9270-GY; G0480; J1885; J2590; J2790; J7120

== ENCOUNTER 2023-09-27 18:50 | Inpatient (IN) | payer MEDICAID ==
[2023-09-27] MEDS ORDERED: Ondansetron 4 MG/2 ML SDV IVPUSH ONE (19:05)
[2023-09-27] MEDS ORDERED: Sodium Chloride 0.9% 1,000 ML IV SCH (19:05)
[2023-09-27 19:35] LABS: ALBUMIN 3.9 g/dL (3.4-5.0); ALKALINE PHOSPHATASE 113 U/L (46-116); ANION GAP 17.7 mEq/L (7-13); BILIRUBIN TOTAL 0.7 mg/dL (0.2-1.0); BLOOD UREA NITROGEN,BUN 12 mg/dL (7-18); CALCIUM 7.4 mg/dL (8.5-10.1); CARBON DIOXIDE,CO2 19 mmol/L (21-32); CHLORIDE,CL 105 mmol/L (98-107); ETHANOL BLOOD MEDICAL 274 mg/dL (0); GLUCOSE RANDOM 155 mg/dL (70-99); LIPASE 111 U/L (16-77); MAGNESIUM 2.1 mg/dL (1.8-2.4); POTASSIUM,K 3.7 mmol/L (3.5-5.1); SODIUM,NA 138 mmol/L (136-145)
[2023-09-27 19:43] LABS: HCG QUALITATIVE,SERUM NEGATIVE (NEGATIVE)
[2023-09-27 19:49] LABS: A/G RATIO -2.79; PROTEIN TOTAL,TP 2.5 g/dL (6.4-8.2)
[2023-09-27] MEDS ORDERED: Sodium Chloride 0.9% 10 ML Syringe FLUSH PRN (19:58)
[2023-09-27 20:04] LABS: APPEARANCE,URINE CLEAR (CLEAR); BILIRUBIN,URINE NEGATIVE (NEGATIVE); COLOR,URINE YELLOW (YELLOW); GLUCOSE,URINE NEGATIVE (NEGATIVE); KETONES,URINE NEGATIVE (NEGATIVE); LEUKOCYTE ESTERASE,URINE NEGATIVE (NEGATIVE); NITRITE,URINE NEGATIVE (NEGATIVE); OCCULT BLOOD,URINE SMALL (NEGATIVE); PROTEIN,URINE NEGATIVE (NEGATIVE); UROBILINOGEN,URINE 0.2 mg/dL (0.2-1.0)
[2023-09-27 20:06] LABS: EOSINOPHILS PERCENT AUTO 5.4 % (1.0-3.0); HEMATOCRIT 45.2 % (37.0-47.0); MEAN CORPUSCULAR HEMOGLOBIN 33.3 pg (27.0-34.0); MEAN CORPUSCULAR HGB CONC 36.9 g/dL (33.0-35.0); MEAN CORPUSCULAR VOLUME 90.2 fL (80-100); MONOCYTES PERCENT AUTO 5.7 % (2-8); NEUTROPHILS PERCENT AUTO 37.9 % (42.2-75.2); PLATELET COUNT,PLT 436 10^3/uL (150-450); RED BLOOD CELL COUNT 5.01 10^6/uL (4.2-5.4); WHITE BLOOD CELL COUNT,WBC 9.5 10^3/uL (5.0-10.0)
[2023-09-27 20:10] LABS: AMPHETAMINES,URINE NEGATIVE (NEGATIVE); BARBITURATES,URINE NEGATIVE (NEGATIVE); BENZODIAZEPINE,URINE NEGATIVE (NEGATIVE); MDMA (ECSTASY), URINE NEGATIVE (NEGATIVE); METHADONE,URINE NEGATIVE (NEGATIVE); METHAMPHETAMINES,URINE POSITIVE (NEGATIVE); OPIATES,URINE NEGATIVE (NEGATIVE); OXYCODONE,URINE NEGATIVE (NEGATIVE); PHENCYCLIDINE,URINE NEGATIVE (NEGATIVE); TCA,URINE NEGATIVE (NEGATIVE)
[2023-09-27 20:15] LABS: BACTERIA,URINE FEW /HPF (0-FEW/HPF); EPITHELIAL CELLS,URINE FEW /HPF (NOT SEEN); MUCUS,URINE OCCASIONAL /LPF (NOT SEEN); RBC,URINE 0-5 /HPF (0-5); WBC,URINE 0-5 /HPF (0-5/HPF)
[2023-09-27 20:17] LABS: C-REACTIVE PROTEIN < 0.50 ng/dL (<=0.50)
[2023-09-27 20:18] LABS: CREATININE < 0.15 mg/dL (0.55-1.02)
[2023-09-27 20:24] LABS: HEMOGLOBIN 16.7 g/dL (12.0-16.0)
[2023-09-27 20:25] LABS: CORONAVIRUS COVID-19 NAA NEGATIVE (NEGATIVE); INFLUENZA A NAA NEGATIVE (NEGATIVE); INFLUENZA B NAA NEGATIVE (NEGATIVE); RESPIRATORY SYNCYTIAL VIR NAA NEGATIVE (NEGATIVE)
[2023-09-27 20:29] LABS: LACTIC ACID 0.7 mmol/L (0.4-2.0)
[2023-09-27] MEDS ORDERED: Sodium Chloride 0.9% 1,000 ML IV ONE (20:29)
[2023-09-27 20:32] LABS: ASPARTATE AMNIOTRANSFERASE,AST 11 U/L (15-37)
[2023-09-27 20:46] LABS: ALANINE AMINOTRANSFERASE,ALT < 6 U/L (14-59)
[2023-09-27] MEDS ORDERED: Iopamidol 612 MG/ML 100 ML Bottle IVPUSH ONE (20:56)
[2023-09-27] MEDS ORDERED: Ibuprofen 600 MG Tab PO PRN (22:28)
[2023-09-27] MEDS ORDERED: HYDROmorphone 0.5 MG/0.5 ML Syringe IVPUSH PRN ×2 (22:28→22:34)
[2023-09-27] MEDS ORDERED: Albuterol/Ipratropium 3.0-0.5 MG/3 ML Neb Soln NEB PRN (22:28)
[2023-09-27] MEDS ORDERED: Ondansetron 4 MG/2 ML SDV IVPUSH PRN (22:28)
[2023-09-27] MEDS ORDERED: traMADol 50 MG Tab PO PRN (22:31)
[2023-09-27] MEDS ORDERED: Haloperidol Lactate 5 MG/ML SDV IM PRN (22:32)
[2023-09-27] MEDS ORDERED: hydrALAZINE 20 MG/ML SDV IVPUSH PRN (22:32)
[2023-09-27] MEDS ORDERED: Thiamine 100 MG in Sodium Chloride 0.9% 50 ML IV ONE (22:32)
[2023-09-27] MEDS ORDERED: LORazepam 0.5 MG Tab PO PRN (22:32)
[2023-09-27] MEDS ORDERED: LORazepam 2 MG/ML SDV IV PRN (22:32)
[2023-09-27] MEDS ORDERED: MVI, Adult with Vitamin K 10 ML, Folic Acid 1 MG, Thiamine 100 MG in Lactated Ringers 1... IV ONE ×4 (22:32)
[2023-09-27] MEDS ORDERED: Metoprolol Tartrate 5 MG/5 ML SDV IVPUSH PRN (22:32)
[2023-09-27] MEDS ORDERED: cloNIDine 0.1 MG Tab PO ONE (22:34)
[2023-09-27] MEDS ORDERED: Famotidine 20 MG/2 ML SDV IVPUSH ONE (22:36)
[2023-09-27] MEDS ORDERED: MVI, Adult with Vitamin K 10 ML, Folic Acid 1 MG, Thiamine 200 MG in Lactated Ringers 1... IV ONE ×4 (22:45)
[2023-09-27] MEDS ORDERED: Loperamide 2 MG Cap PO PRN (22:50)
[2023-09-27] MEDS ORDERED: Doxycycline Monohydrate 100 MG Cap PO ONE (23:22)
[2023-09-27] MEDS ORDERED: Calcium Gluconate 10% 1 GM/10 ML SDV IVPUSH ONE (23:33)
[2023-09-28 06:53] LABS: HEMATOCRIT 38.2 % (37.0-47.0); HEMOGLOBIN 13.1 g/dL (12.0-16.0); MEAN CORPUSCULAR HEMOGLOBIN 31.9 pg (27.0-34.0); MEAN CORPUSCULAR HGB CONC 34.3 g/dL (33.0-35.0); MEAN CORPUSCULAR VOLUME 92.9 fL (80-100); PLATELET COUNT,PLT 273 10^3/uL (150-450); RED BLOOD CELL COUNT 4.11 10^6/uL (4.2-5.4); WHITE BLOOD CELL COUNT,WBC 5.1 10^3/uL (5.0-10.0)
[2023-09-28 07:04] LABS: EOSINOPHILS PERCENT AUTO 4.9 % (1.0-3.0); LYMPHOCYTES PERCENT AUTO 57.7 % (20.5-50.1); MONOCYTES PERCENT AUTO 7.8 % (2-8); NEUTROPHILS PERCENT AUTO 28.6 % (42.2-75.2)
[2023-09-28 07:17] LABS: ALANINE AMINOTRANSFERASE,ALT 45 U/L (14-59); ALBUMIN 3.1 g/dL (3.4-5.0); ALKALINE PHOSPHATASE 64 U/L (46-116); ANION GAP 15.5 mEq/L (7-13); BILIRUBIN TOTAL 0.3 mg/dL (0.2-1.0); BLOOD UREA NITROGEN,BUN 11 mg/dL (7-18); BUN/CREATININE RATIO 15.9 (No establ ref range); CALCIUM 7.7 mg/dL (8.5-10.1); CARBON DIOXIDE,CO2 20 mmol/L (21-32); CHLORIDE,CL 106 mmol/L (98-107); CHOLESTEROL HDL 31 mg/dL (40-59); CHOLESTEROL TOTAL 218 mg/dL (0-199); CREATININE 0.69 mg/dL (0.55-1.02); EST CRCL DRUG DOSING (CG) 119.57 mL/min; GLUCOSE RANDOM 100 mg/dL (70-99); LIPASE 48 U/L (16-77); MAGNESIUM 1.8 mg/dL (1.8-2.4); POTASSIUM,K 3.5 mmol/L (3.5-5.1); PROTEIN TOTAL,TP 6.2 g/dL (6.4-8.2); SODIUM,NA 138 mmol/L (136-145)
[2023-09-28 07:25] LABS: ESTIMATED GFR 120 mL/min (>=60)
[2023-09-28 07:26] LABS: TRIGLYCERIDES > 1000 mg/dL (0-149)
[2023-09-28 07:27] LABS: C-REACTIVE PROTEIN < 0.50 ng/dL (<=0.50)
[2023-09-28 07:29] LABS: ASPARTATE AMNIOTRANSFERASE,AST 62 U/L (15-37)
[2023-09-28 08:11] LABS: BAND PERCENT MAN 1 %; BASOPHILS PERCENT MAN 2; EOSINOPHILS PERCENT MAN 8 % (1-3); LYMPHOCYTES PERCENT MAN 58 % (20-50); MONOCYTES PERCENT MAN 6 % (2-8); SEG NEUTROPHILS PERCENT MAN 25 % (42-75)
[2023-09-28] MEDS ORDERED: Doxycycline Monohydrate 100 MG Cap PO SCH (09:00)
[2023-09-28] MEDS ORDERED: Famotidine 20 MG/2 ML SDV IVPUSH SCH (09:00)
[2023-09-28] MEDS ORDERED: Saccharomyces Boulardii (Probiotic) 250 MG Cap PO SCH (09:00)
[2023-09-28] MEDS ORDERED: HYDROmorphone 1 MG/ML Syringe IVPUSH PRN (09:18)
[2023-09-28] MEDS ORDERED: Calcium Carbonate 500 MG Tab.Chew PO ONE (12:00)
[2023-09-28 17:26] VITALS: BP 142/87; PULSE 91
[2023-09-28] MEDS ORDERED: Thiamine 100 MG Tab PO SCH (21:00)
[2023-09-28] MEDS ORDERED: Folic Acid 1 MG Tab PO SCH (21:00)
[2023-09-28] MEDS ORDERED: Multivitamin Tab PO SCH (21:00)
== END 2023-09-28 19:00 | disposition home or self-care (01) | DRG 439 ==
LOC: DL.ED 18:50 → UNDOADMIN 21:59 → DL.MS 21:59
PROVIDERS: ADMIT Internal Medicine; ATTEND Internal Medicine
DX: K85.20 Alcohol induced acute pancreatitis without necrosis or infection (principal); F10.920 Alcohol use, unspecified with intoxication, uncomplicated; F15.929 Other stimulant use, unspecified with intoxication, unspecified; E87.20 Acidosis, unspecified; K76.0 Fatty (change of) liver, not elsewhere classified; A74.9 Chlamydial infection, unspecified; K76.9 Liver disease, unspecified; R19.7 Diarrhea, unspecified; K29.20 Alcoholic gastritis without bleeding; Z98.890 Other specified postprocedural states; I10 Essential (primary) hypertension; K21.9 Gastro-esophageal reflux disease without esophagitis; Z20.822 Contact with and (suspected) exposure to COVID-19; F41.9 Anxiety disorder, unspecified; F32.A Depression, unspecified; R73.9 Hyperglycemia, unspecified; E83.51 Hypocalcemia; F15.129 Other stimulant abuse with intoxication, unspecified; E78.5 Hyperlipidemia, unspecified; F10.20 Alcohol dependence, uncomplicated; K52.9 Noninfective gastroenteritis and colitis, unspecified; F17.210 Nicotine dependence, cigarettes, uncomplicated; Z91.040 Latex allergy status; Z11.52 Encounter for screening for COVID-19; Z79.899 Other long term (current) drug therapy
CPT/HCPCS: 0241U; 36415; 74177; 80053; 80061; 80305-QW; 80307; 81001; 83605; 83615; 83690; 83721; 83735; 84703; 85025; 86140; 87045; 99222; 99238; 99284; A9270-GY; J0612; J2405; J3411; J3490; J7030; J7120; J7620-GY; Q9967

== ENCOUNTER 2023-12-22 23:50 | Emergency (ER) | payer MEDICAID ==
[2023-12-23 00:18] VITALS: BP 175/116; PULSE 141
[2023-12-23 00:49] LABS: BASOPHILS PERCENT AUTO 0.5 % (0.0-1.0); EOSINOPHILS PERCENT AUTO 4.2 % (1.0-3.0); HEMATOCRIT 46.2 % (37.0-47.0); HEMOGLOBIN 15.5 g/dL (12.0-16.0); LYMPHOCYTES PERCENT AUTO 21.3 % (20.5-50.1); MEAN CORPUSCULAR HEMOGLOBIN 31.8 pg (27.0-34.0); MEAN CORPUSCULAR HGB CONC 33.5 g/dL (33.0-35.0); MEAN CORPUSCULAR VOLUME 94.9 fL (80-100); MONOCYTES PERCENT AUTO 6.3 % (2-8); NEUTROPHILS PERCENT AUTO 67.7 % (42.2-75.2); PLATELET COUNT,PLT 348 10^3/uL (150-450); RED BLOOD CELL COUNT 4.87 10^6/uL (4.2-5.4); WHITE BLOOD CELL COUNT,WBC 10.9 10^3/uL (5.0-10.0)
[2023-12-23] MEDS: LORazepam 2 MG/ML SDV IVPUSH ONE (01:02)
[2023-12-23 01:07] LABS: AMPHETAMINES,URINE POSITIVE (NEGATIVE); BARBITURATES,URINE NEGATIVE (NEGATIVE); BENZODIAZEPINE,URINE NEGATIVE (NEGATIVE); MDMA (ECSTASY), URINE POSITIVE (NEGATIVE); METHADONE,URINE NEGATIVE (NEGATIVE); METHAMPHETAMINES,URINE POSITIVE (NEGATIVE); OPIATES,URINE NEGATIVE (NEGATIVE); OXYCODONE,URINE NEGATIVE (NEGATIVE); PHENCYCLIDINE,URINE NEGATIVE (NEGATIVE); TCA,URINE NEGATIVE (NEGATIVE)
[2023-12-23] MEDS: hydrOXYzine HCl 25 MG Tab PO ONE (01:07)
[2023-12-23 01:10] LABS: A/G RATIO 1.4; ALANINE AMINOTRANSFERASE,ALT 25 U/L (14-59); ALBUMIN 4.9 g/dL (3.4-5.0); ALKALINE PHOSPHATASE 73 U/L (46-116); ANION GAP 16.4 mEq/L (7-13); ASPARTATE AMNIOTRANSFERASE,AST 23 U/L (15-37); BILIRUBIN TOTAL 0.9 mg/dL (0.2-1.0); BLOOD UREA NITROGEN,BUN 13 mg/dL (7-18); BUN/CREATININE RATIO 16.2 (No establ ref range); CALCIUM 9.6 mg/dL (8.5-10.1); CARBON DIOXIDE,CO2 24 mmol/L (21-32); CHLORIDE,CL 102 mmol/L (98-107); EST CRCL DRUG DOSING (CG) 104.67 mL/min; GLUCOSE RANDOM 124 mg/dL (70-99); POTASSIUM,K 3.4 mmol/L (3.5-5.1); PROTEIN TOTAL,TP 8.4 g/dL (6.4-8.2); SODIUM,NA 139 mmol/L (136-145)
[2023-12-23 01:11] LABS: ESTIMATED GFR 102 mL/min (>=60); ETHANOL BLOOD MEDICAL < 3 mg/dL (0)
== END 2023-12-23 02:08 | disposition home or self-care (01) ==
LOC: SUPCPDRO 23:50 → DL.ED 23:50
DX: F41.0 Panic disorder [episodic paroxysmal anxiety] (principal); I10 Essential (primary) hypertension; F17.210 Nicotine dependence, cigarettes, uncomplicated; Z79.899 Other long term (current) drug therapy; Z91.040 Latex allergy status
CPT/HCPCS: 36415; 80053; 80305; 80307; 81025; 85025; 96374; 99283; 99284; J2060

== ENCOUNTER 2025-07-03 17:09 | Emergency (ER) | payer MEDICAID ==
[2025-07-03] MEDS ORDERED: Sodium Chloride 0.9% 10 ML Syringe FLUSH PRN (17:34)
[2025-07-03 17:54] LABS: BASOPHILS PERCENT AUTO 0.3 % (0.0-1.0); EOSINOPHILS PERCENT AUTO 1.6 % (1.0-3.0); LYMPHOCYTES PERCENT AUTO 32.5 % (20.5-50.1); MONOCYTES PERCENT AUTO 3.7 % (2-8); NEUTROPHILS PERCENT AUTO 61.9 % (42.2-75.2); PLATELET COUNT,PLT 485 10^3/uL (150-450); RED BLOOD CELL COUNT 5.11 10^6/uL (4.2-5.4); WHITE BLOOD CELL COUNT,WBC 12.9 10^3/uL (5.0-10.0)
[2025-07-03 17:56] LABS: APPEARANCE,URINE CLEAR (CLEAR); GLUCOSE,URINE NEGATIVE (NEGATIVE); OCCULT BLOOD,URINE MODERATE (NEGATIVE)
[2025-07-03 17:58] LABS: AMPHETAMINES,URINE NEGATIVE (NEGATIVE); BARBITURATES,URINE NEGATIVE (NEGATIVE); MDMA (ECSTASY), URINE NEGATIVE (NEGATIVE); METHAMPHETAMINES,URINE NEGATIVE (NEGATIVE); OPIATES,URINE NEGATIVE (NEGATIVE); OXYCODONE,URINE NEGATIVE (NEGATIVE); PHENCYCLIDINE,URINE NEGATIVE (NEGATIVE); TCA,URINE NEGATIVE (NEGATIVE)
[2025-07-03 18:12] LABS: EPITHELIAL CELLS,URINE RARE /HPF (NOT SEEN)
[2025-07-03 18:14] LABS: A/G RATIO 1.1; ALANINE AMINOTRANSFERASE,ALT 18 U/L (14-59); ASPARTATE AMNIOTRANSFERASE,AST 18 U/L (15-37); BILIRUBIN TOTAL 0.8 mg/dL (0.2-1.0); BLOOD UREA NITROGEN,BUN 14 mg/dL (7-18); CARBON DIOXIDE,CO2 21 mmol/L (21-32); CHLORIDE,CL 102 mmol/L (98-107); CREATININE 0.56 mg/dL (0.55-1.02); EST CRCL DRUG DOSING (CG) 142.85 mL/min; ETHANOL BLOOD MEDICAL 246 mg/dL (0); GLUCOSE RANDOM 116 mg/dL (70-99); POTASSIUM,K 3.5 mmol/L (3.5-5.1); PROTEIN TOTAL,TP 8.2 g/dL (6.4-8.2); SODIUM,NA 138 mmol/L (136-145)
[2025-07-03 18:15] LABS: ESTIMATED GFR 126 mL/min (>=60)
[2025-07-03 18:22] LABS: LACTIC ACID 2.3 mmol/L (0.4-2.0)
[2025-07-03] MEDS: Ketorolac 30 MG/ML SDV IVPUSH ONE (18:51)
[2025-07-03] MEDS: Take Home: Ondansetron 4 MG Tab.DIS, 5 Tab Pack PO ONE (18:51)
[2025-07-03] MEDS: GI Cocktail Oral Solution 30 ML PO ONE (18:51)
== END 2025-07-03 18:54 | disposition home or self-care (01) ==
LOC: DL.ED 17:09
DX: R10.13 Epigastric pain (principal); R10.30 Lower abdominal pain, unspecified; R10.10 Upper abdominal pain, unspecified; I10 Essential (primary) hypertension; Z79.899 Other long term (current) drug therapy; Z91.040 Latex allergy status; Z90.49 Acquired absence of other specified parts of digestive tract
CPT/HCPCS: 36415; 80053; 80305; 80307; 81001; 81025; 82150; 83605; 83690; 83735; 85025; 86140; 96374; 99284; A9270; J1885; Q0162